=== PATIENT | male | born 1965 | race Two or more races ===

== ENCOUNTER 2018-05-19 19:57 | Emergency (ER) | payer OTHER ==
[~2018-05-19] VITALS: Ht 177.8 cm; Wt 77.0 kg
[2018-05-19 20:15] VITALS: BP 174/94
== END 2018-05-19 22:29 | disposition left against medical advice (07) ==
LOC: ER 19:57
DX: Z00.00 Encounter for general adult medical examination without abnormal findings (principal)
CPT/HCPCS: 74018; 99283